=== PATIENT | female | born 1960 | race Caucasian/White ===

== ENCOUNTER 2018-07-14 11:37 | Emergency (ER) | payer BC ==
[~2018-07-14] VITALS: Ht 147.3 cm; Wt 74.8 kg
[~2018-07-14 11:37] MED LIST: MAC100 PO; METFORMIN HCL500 MG PO; SIMVASTATIN20 M1 PO
[2018-07-14 11:50] VITALS: Ht 147.3 cm; Wt 74.8 kg
[2018-07-14 15:14] VITALS: BP 126/81
== END 2018-07-14 15:14 | disposition home or self-care (01) ==
LOC: ED 11:37
DX: K80.50 Calculus of bile duct without cholangitis or cholecystitis without obstruction (principal); Z88.5 Allergy status to narcotic agent